=== PATIENT | female | born 1950 | race Caucasian/White ===

== ENCOUNTER → 2018-09-14 | Outpatient (CLI) | payer MEDICARE ==
--- NOTE | 2018-09-15 15:36 | MAM ---
EXAM DESCRIPTION: 3D Screening BILATERAL : Digital Mammography. CLINICAL HISTORY: 68 years Female SCREEN . No complaints. No personal history of breast cancer. Mother with breast cancer. Childbirth. Postmenopausal. HRT unknown time.. Lifetime risk of developing breast cancer (Tyrer-Cuzick model)(%): 9.9. COMPARISON: 2-D digital screening bilateral mammography 06/19/2014.. No prior reports available. TECHNIQUE: Bilateral CC and MLO projection full-field images, digital tomosynthesis mammographic technique. Bilateral digital 2-D full-field MLO images. CAD not available for tomosynthesis or 2-D images. FINDINGS: The breast parenchymal density pattern is: Scattered areas of fibroglandular density. No skin thickening or nipple retraction. Bilateral solitary microcalcifications. Accessory breast tissue in the bilateral axilla. No new focal, stellate mass or density, focal asymmetry , and no suspicious microcalcifications bilaterally. Stable mammograms compared to prior study. Taking into account, differences in mammographic technique. IMPRESSION: Benign exam. BIRAD CATEGORY: 2 BENIGN FINDINGS. RECOMMENDATIONS: FOLLOW UP: Routine digital bilateral mammographic screening, one year interval from September 2018. Written communication explaining the IMPRESSION and follow-up, will be mailed to the patient and referring health care provider. According to the [employer], yearly mammograms are recommended starting at age 40 and continuing as long as a woman is in good health. Any breast change noted on a breast self-exam should be reported promptly to the patient's healthcare provider. Breast MRI is recommended for women with an approximately 20-25% or greater lifetime risk of breast cancer, including women with a strong family history of breast or ovarian cancer and women who have been treated for Hodgkin's disease. A negative mammographic report should not delay tissue diagnosis in patients with significant clinical history or physical findings. Extremely dense breast tissue limits the sensitivity of digital mammography. Electronically signed by: Juma Ramires MD 09/15/2018 3:33 PM CDT
== END ==
LOC: MAMMO 11:00
PROVIDERS: ATTEND General Practice
DX: Z12.31 Encounter for screening mammogram for malignant neoplasm of breast (principal)

== ENCOUNTER 2018-12-13 05:44 | Day surgery (SDC) | payer MEDICARE, OTHER ==
[2018-12-13] MEDS ORDERED: MIDAZOLAM INJ 2 MG/2 ML VIAL ONE (06:55)
[2018-12-13] MEDS ORDERED: LACTATED RINGERS 1,000 ML ONE (07:01)
[2018-12-13] MEDS ORDERED: PROPOFOL 200 MG/20 ML VIAL IV ONE (10:00)
[2018-12-13] MEDS ORDERED: LIDOCAINE 1% 10 ML VIAL INJ ONE (10:00)
--- NOTE | 2018-12-13 10:53 | OP ---
DATE OF PROCEDURE: 12/13/18 PREOPERATIVE DIAGNOSIS: 1. Positive fecal occult blood. POSTOPERATIVE DIAGNOSIS: 1. Eight colonic polyps. 2. Diverticulosis. 3. Internal hemorrhoids. PROCEDURE: 1. Colonoscopy plus polypectomy. SURGEON: Saleem Beard MD. COMPLICATIONS: None apparent. BLOOD LOSS: None. MEDICATIONS: Monitored anesthesia care. DESCRIPTION OF PROCEDURE: Informed consent was obtained prior to sedation. The preprocedure cardiopulmonary assessment was satisfactory. The patient was placed in the left lateral decubitus position and was sedated. A digital rectal exam was unremarkable. The tip of the Olympus colonoscope was inserted in the rectum and advanced over to the cecum. There was some greenish, opaque liquid scattered in the colon. I suctioned it away so we could get a good view of the mucosa underneath. The cecum was identified by locating the ileocecal valve and appendiceal orifice. The mucosa of the cecum, ascending colon, hepatic flexure, transverse colon, splenic flexure, descending colon and sigmoid colon was closely examined. Direct and retroflexed views of the rectum were obtained. The patient had a total of eight polyps. In the ascending colon, she had five polyps that were sessile or semi-pedunculated. They ranged in size from 5 mm up to 15 mm. They were all removed with a hot snare in one piece. One of the polyps was bisected with the cold snare in order to be able to suction it threw the suction channel. All five of these polyps were recovered. The patient did have some diverticulosis in the ascending colon. In the transverse colon, there were two polyps that were sessile and ranged from 6 to 10 mm in size. Both of these were removed with a hot snare and recovered. In the sigmoid colon, there was diverticulosis. In the rectum, there was a 5 mm sessile polyp that was removed with a hot snare and recovered. Internal hemorrhoids were seen on retroflexed view. Otherwise, the colonoscopy was unremarkable. The procedure was then terminated. RECOMMENDATIONS: Followup the polyp pathology to determine the appropriate timing for the next surveillance colonoscopy. We will notify her of the polyp results within a week. #[id number] cc: Spencer Aj, MSN, SHOER, MD KALPANA Gutierres
[2018-12-13 11:41] VITALS: BP 137/69; TEMP 97.1; O2SAT 97
== END 2018-12-13 11:25 | disposition home or self-care (01) ==
LOC: AMB 05:44
PROVIDERS: ATTEND Internal Medicine Gastroenterology
DX: R19.5 Other fecal abnormalities (principal); D12.7 Benign neoplasm of rectosigmoid junction; D12.2 Benign neoplasm of ascending colon; D12.3 Benign neoplasm of transverse colon; K57.30 Diverticulosis of large intestine without perforation or abscess without bleeding; K64.8 Other hemorrhoids; I10 Essential (primary) hypertension; Z90.710 Acquired absence of both cervix and uterus; Z88.8 Allergy status to other drugs, medicaments and biological substances
CPT/HCPCS: 00811; 45385; 88305; J2250; J3490; J7120